=== PATIENT | male | born 1980 | race Caucasian/White ===

== ENCOUNTER 2016-06-06 10:42 | Emergency (ER) | payer MEDICARE ==
[~2016-06-06] VITALS: Ht 162.6 cm; Wt 67.0 kg
[2016-06-06 11:05] VITALS: Ht 162.6 cm; Wt 67.0 kg
[2016-06-06] MEDS ORDERED: ACETAMINOPHEN 500 MG TAB PO STA (13:08)
[2016-06-06] MEDS ORDERED: FLUORESCEIN STRIP BOTH EYES ONE (13:30)
[2016-06-06] MEDS ORDERED: OPHTHALMIC IRRIG SOLUTION 120 ML BOTH EYES ONE (13:30)
[2016-06-06] MEDS ORDERED: TETRACAINE 0.5% 4 ML OPH BOTH EYES ONE (13:30)
[2016-06-06] MEDS ORDERED: IBUP-1542 PO (13:43)
[2016-06-06] MEDS ORDERED: ERYTOPOI BOTH EYES (13:43)
[2016-06-06] MEDS ORDERED: CETI10CA PO (13:43)
--- NOTE | 2016-06-06 13:59 | ERD ---
ER Documentation Chief Complaint Date/Time DATE: 06/06/16 TIME: 13:58 Chief Complaint EYE IRRITATION SINCE LAST NIGHT - PT DOES NOT KNOW THE CAUSE HPI This 36-year-old male presents with bilateral eye irritation which started in the middle the night. He believes his roommate starla. Bug spray on his bed. Denies any blurry vision or visual changes or visual deficits. Denies contact lens use. He has itching and irritation bilaterally. He has some irritation in the skin around the eyelids as well. ROS All systems reviewed and are negative except as per history of present illness. Medications Home Meds Active Scripts Cetirizine Hcl* (Zyrtec*) 10 Mg Capsule, 10 MG PO DAILY, #15 TAB.CHEW Prov:DARIUSZ FRANCOIS MD 06/06/16 Ibuprofen* (Motrin*) 600 Mg Tab, 600 MG PO Q6, #15 TAB Prov:DARIUSZ FRANCOIS MD 06/06/16 Erythromycin* (Erythromycin* Ophthalmic) 1 Applic Oint, 1 APPLIC BOTH EYES QID for 7 Days, EA Prov:DARIUSZ FRANCOIS MD 06/06/16 PMhx/Soc Medical and Surgical Hx: pt denies Medical Hx Hx Alcohol Use: No Hx Substance Use: No Hx Tobacco Use: Yes Smoking Status: Light tobacco smoker Physical Exam Vitals Vital Signs Date Time Temp Pulse Resp B/P Pulse Ox O2 Delivery O2 Flow Rate FiO2 06/06/16 11:05 98.7 83 19 109/69 100 Physical Exam Const: [] Alert, [id number] per Head: Atraumatic Eyes: Normal Conjunctiva. Mild bilateral scleral redness. Eyes are PERRLA and extraocular is intact. There is no appreciable fluorescein uptake, periorbital swelling, erythema or induration or proptosis. Visual acuity shows no acute abnormalities bilaterally. ENT: Normal External Ears, Nose and Mouth. Neck: Full range of motion..~ No meningismus. Resp: Clear to auscultation bilaterally Cardio: Regular rate and rhythm, no murmurs Abd: Soft, non tender, non distended. Normal bowel sounds Skin: No petechiae or rashes Back: No midline or flank tenderness Ext: No cyanosis, or edema Neur: Awake and alert Psych: Normal Mood and Affect Results 24 hrs Current Medications Medications (Trade) Dose Ordered Sig/Augie Route PRN Reason Start Time Stop Time Status Last Admin Dose Admin Irrigating Solution (Eye Wash) 1 applic ONCE ONCE BOTH EYES 06/06/16 13:30 06/06/16 13:31 DC 06/06/16 13:14 Acetaminophen (Tylenol Tab) 500 mg ONCE STAT PO 06/06/16 13:08 06/06/16 13:10 DC 06/06/16 13:14 Tetracaine HCl (Tetracaine 0.5% Steri-Unit Telma) 1 drop ONCE ONCE BOTH EYES 06/06/16 13:30 06/06/16 13:31 DC 06/06/16 13:14 Fluorescein Sodium (Ufjbc-[id number]-Gbuzx) 1 strip ONCE ONCE BOTH EYES 06/06/16 13:30 06/06/16 13:31 DC 06/06/16 13:14 Procedures/MDM Patient presents with signs and symptoms of likely chemical conjunctivitis or possibly viral folliculitis. Eyes were irrigated will pursue. Patient shows no signs of orbital cellulitis, threats to vision, signs of retinal detachment, retinal artery ischemia, dendritic lesions or ulcers. He will be treated with erythromycin topical ointment, Zyrtec, instructions to follow-up with ophthalmology this week for persistent symptoms. Should otherwise return to the ER for new or worsening symptoms. Departure Diagnosis: Primary Impression: Conjunctivitis Conjunctivitis type: acute Acute conjunctivitis type: unspecified Laterality: bilateral Qualified Code: H10.33 - Acute conjunctivitis of both eyes, unspecified acute conjunctivitis type Condition: Stable Patient Instructions: Conjunctivitis, Allergic, Eye Exposure, Chemical Additional Instructions: See hay buckler for persistent symptoms this week. Likely chemical or viral conjunctivitis DARIUSZ FRANCOIS MD Jun 06, 2016 13:59
== END 2016-06-06 14:22 | disposition home or self-care (01) ==
LOC: FTE 10:42
DX: H10.33 Unspecified acute conjunctivitis, bilateral (principal); F17.210 Nicotine dependence, cigarettes, uncomplicated
CPT/HCPCS: 99283